=== PATIENT | female | born 1965 | race Caucasian/White ===

== ENCOUNTER 2023-04-28 18:31 | Inpatient (IN) | payer MEDICARE, MEDICAID, SELFPAY ==
[2023-04-28 18:32] VITALS: BP 179/123; PULSE 78; TEMP 36.8; O2SAT 96; BMI 23.3
[2023-04-28 19:23] LABS: Basophils % 0.1 %; Eosinophils % 0.1 %; Hematocrit 42.3 % (36-47); Lymphocytes # 1.8 10^3/uL (0.8-4.8); Lymphocytes % 19.7 %; Mean Corpuscular Hemoglobin 32.5 pg (27-33); Mean Corpuscular Volume 95.5 fl (85-98); Mean Platelet Volume 9.4 fL (7.4-10.4); Monocytes # 0.6 10^3/uL (0.2-0.9); Monocytes % 6.3 %; Neutrophils # 6.64 10^3/uL (1.8-7.7); Neutrophils % 73.6 %; Nucleated Red Blood Cells % 0 %; Platelet Count 262 10^3/cmm (157-399); Red Blood Count 4.43 10^6/uL (3.85-5.65); Red Cell Distribution Width 14.5 % (12.1-15.1); White Blood Count 9.03 10^3/uL (3.29-11.43)
[2023-04-28 19:42] LABS: Alanine Aminotransferase 10 U/L (0-33); Albumin Level 4.4 g/dL (3.5-5.2); Alcohol Level 168 mg/dL (0-10); Alkaline Phosphatase 91 U/L (35-105); Aspartate Amino Transferase 15 U/L (0-32); Blood Urea Nitrogen 12 mg/dL (6-20); Calcium 9.1 mg/dL (8.5-10.5); Carbon Dioxide 29 mmol/L (22-29); Chloride 103 mmol/L (98-107); Globulin 3.2 g/dL (1.3-4.6); Glomerular Filtration Rate 102.3 mL/min (90-130); Glucose 110 mg/dL (65-115); Osmolality Calculated 292 mOsm/kg (285-295); Sodium 141 mmol/L (136-145); Total Bilirubin 0.2 mg/dL (0.15-1.2); Total Protein 7.6 g/dL (6.6-8.7)
[2023-04-28 19:43] LABS: Acetaminophen < 5.0 ug/mL (10-30); Salicylate < 0.3 mg/dL (3-10)
--- NOTE | 2023-04-28 19:46 | W.ED.PSYCHS ---
HPI - Psych General: Chief Complaint: Psychiatric Symptoms Stated Complaint: si Time Seen by Provider: 04/28/23 18:36 History of Present Illness: Patient presents to the ER for suicidal ideation. Patient was found near the train next and she stated that she was trying to kill herself and if the police would have got there in time she would jump in front of a train. Patient states her is in [place] in detention and has been there 7 years she has family members in [place] and family members and some other faraway state and has no one here for support. Patient states has been on antidepressants for a long time but is been out of them for a long time and Celexa seem to work the best. Patient does states she has tried committing suicide by taking 72 Tylenol PM in the past. Physical Exam Const: COMMON NORMALS: no acute distress, average body habitus, patient oriented x3, no limitations, healthy appearing, alert and well nourished HENMT: COMMON NORMALS: normocephalic, atraumatic, external ears normal, Normal external nose present and moist oral mucous membranes; hearing grossly not normal bilaterally (Patient hard of hearing) HEAD & SCALP: normocephalic and atraumatic NOSE: Normal external nose present EXTERNAL EAR: Yes external ears normal Eye: COMMON NORMALS: Equal, round and reactive pupils present, EOMs intact bilaterally, conjunctivae normal and no scleral icterus CONJUNCTIVA: Yes conjunctivae normal PUPIL: Yes Equal, round and reactive pupils present Neck/C-Spine: COMMON NORMALS: full ROM, no lymphadenopathy, supple, no meningeal signs, no JVD and Thyroid normal THYROID: Thyroid normal Lymph: LYMPHATIC: no lymphadenopathy noted and no lymphedema noted Chest: COMMONS NORMALS: normal inspection of the chest and normal palpation of entire chest wall Resp: COMMON NORMALS: normal respiratory effort, No retractions, No use of accessory muscles and clear to auscultation bilaterally AUSCULTATION: clear to auscultation bilaterally Cardio: COMMON NORMALS: no JVD, regular rate, regular rhythm, S1 normal heart sound present, S2 normal heart sound present and No gallops present (Cardio) RATE: regular rate RHYTHM: regular rhythm HEART SOUNDS: S1 normal heart sound present and S2 normal heart sound present GI: COMMON NORMALS: Normal to inspection, nondistended, normoactive bowel sounds present, Soft to palpation, non-tender and No hepatosplenomegaly present PALPATION: Yes Soft to palpation and Yes No hepatosplenomegaly present : COMMON NORMALS: Yes no CVA tenderness BLADDER/KIDNEY EXAM: Yes no CVA tenderness Back/Pelvis: COMMON NORMALS: no CVA tenderness Neuro: COMMON NORMALS: patient oriented x3 SENSORIUM/ORIENTATION: Yes alert MENINGEAL SIGNS: Yes no meningeal signs Course Vital Signs: Vital signs: Vital Signs Temperature 98.2 F 04/28/23 18:32 Pulse Rate 78 04/28/23 18:32 Blood Pressure 179/123 04/28/23 18:32 Pulse Oximetry 96 04/28/23 18:32 Oxygen Delivery Me thod Room Air 04/28/23 18:32 MDM - Psych Medical Decision Making Patient presents to the ER for suicidal ideation. States she will jump in front of train to end her life. Patient does not be on her antidepressants for multiple years. Patient was worked up in normal psychiatric fashion with labs. Patient is alcohol level did come back approximately 168. Dr. Mcintyre was consulted who agreed for admission for further evaluation and treatment. Patient is voluntary Differential Diagnosis Likely suicidal ideation and depression; Unlikely acute psychosis, chronic schizophrenia, bipolar disorder, drug-induced psychotic disorder or acute anxiety Medical Records I reviewed the patient's medical records. Lab Data I reviewed the patient's lab results. 04/28/23 19:07 04/28/23 19:07 Laboratory Results WBC 9.03 10^3/uL (3.29-11.43) 04/28/23 19:07 RBC 4.43 10^6/uL (3.85-5.65) 04/28/23 19:07 Hgb 14.40 g/dL (11.27-16.99) 04/28/23 19:07 Hct 42.3 % (36-47) 04/28/23 19:07 MCV 95.5 fl (85-98) 04/28/23 19:07 MCH 32.5 pg (27-33) 04/28/23 19:07 MCHC 34.0 g/dL (30-55) 04/28/23 19:07 RDW 14.5 % (12.1-15.1) 04/28/23 19:07 Plt Count 262 10^3/cmm (157-399) 04/28/23 19:07 MPV 9.4 fL (7.4-10.4) 04/28/23 19:07 Neut % (Auto) 73.6 % 04/28/23 19:07 Lymph % (Auto) 19.7 % 04/28/23 19:07 Dickenson % (Auto) 6.3 % 04/28/23 19:07 Eos % (Auto) 0.1 % 04/28/23 19:07 Baso % (Auto) 0.1 % 04/28/23 19:07 Neut # (Auto) 6.64 10^3/uL (1.8-7.7) 04/28/23 19:07 Lymph # (Auto) 1.8 10^3/uL (0.8-4.8) 04/28/23 19:07 Dickenson # (Auto) 0.6 10^3/uL (0.2-0.9) 04/28/23 19:07 Eos # (Auto) 0.0 10^3/uL (0.0-0.8) 04/28/23 19:07 Baso # (Auto) 0.0 10^3/uL (0.0-0.1) 04/28/23 19:07 Nucleated RBC % (auto) 0 % 04/28/23 19:07 Nucleated RBCs # 0.0 /100WBC 04/28/23 19:07 Sodium 141 mmol/L (136-145) 04/28/23 19:07 Potassium 4.0 mmol/L (3.5-5.1) 04/28/23 19:07 Chloride 103 mmol/L (98-107) 04/28/23 19:07 Carbon Dioxide 29 mmol/L (22-29) 04/28/23 19:07 Anion Gap 13.0 (5-19) 04/28/23 19:07 BUN 12 mg/dL (6-20) 04/28/23 19:07 Creatinine 0.6 mg/dL (0.5-0.9) 04/28/23 19:07 GFR Calculation 102.3 mL/min (90-130) 04/28/23 19:07 Glucose 110 mg/dL (65-115) 04/28/23 19:07 Calculated Osmolality 292 mOsm/kg (285-295) 04/28/23 19:07 Calcium 9.1 mg/dL (8.5-10.5) 04/28/23 19:07 Total Bilirubin 0.2 mg/dL (0.15-1.2) 04/28/23 19:07 AST 15 U/L (0-32) 04/28/23 19:07 ALT 10 U/L (0-33) 04/28/23 19:07 Alkaline Phosphatase 91 U/L (35-105) 04/28/23 19:07 Total Protein 7.6 g/dL (6.6-8.7) 04/28/23 19:07 Albumin 4.4 g/dL (3.5-5.2) 04/28/23 19:07 Globulin 3.2 g/dL (1.3-4.6) 04/28/23 19:07 Salicylates < 0.3 mg/dL (3-10) L 04/28/23 19:07 Acetaminophen < 5.0 ug/mL (10-30) L 04/28/23 19:07 Ethyl Alcohol 168 mg/dL (0-10) H 04/28/23 19:07 No radiology studies performed this visit Discharge Plan Discharge Patient Disposition: Admitted As Inpatient Clinical Impression: Suicidal ideation Condition: Stable Coding Level of Care Code ED Client Service Executive for Ann Goodwin
[2023-04-28] MEDS: nicotine 21 mg Patch 1 PATCH TRANSDERMA (19:56)
--- NOTE | 2023-04-28 20:00 | PC.NURSE ---
This nurse spoke with Dr. Jones who approved pt to make a 5 min phone call. Pt asking for people to bring cigarettes, pt has been educated she cannot smoke. Dr. Jones made aware of the conversation pt had on phone.
[2023-04-28 21:58] VITALS: BP 158/104; PULSE 78; RESP 16; O2SAT 97
[2023-04-28 22:18] VITALS: BP 197/120; PULSE 76; RESP 18; TEMP 36.4; O2SAT 94
[2023-04-28] MEDS: LORazepam 2 mg Tablet PO (22:46)
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
[2023-04-29 00:55] VITALS: BP 164/112
[2023-04-29 06:35] LABS: Add Urine Microscopic? NO; Charge for UA Resulting for Rev
[2023-04-29 06:38] LABS: Bilirubin Urine Neg (Negative); Blood Urine Neg (Negative); Glucose Urine UA Norm (Normal); Ketones Urine Negative (Negative); Leukocyte Esterase Urine Negative (Negative); Nitrate Urine Negative (Negative); Protein Urine Neg (Negative); Specific Gravity, Urine 1.015 (1.005-1.030); Urine Appearance Clear (CLEAR); Urine Color Yellow (Yellow); Urobilinogen Urine Norm (Negative); pH Urine 6.5 (5-7)
--- NOTE | 2023-04-29 06:40 | PC.NURSE ---
PT BP CONTINUES TO BE ELEVATED AT 165/111. NOTIFIED VIA PHONE. NEW ORDERS RECEIVED FOR CLONIDINE 0.1 MG PO Q HOURS PRN FOR ELEVATED BP READ BACK AND VERIFIED. ORDERS PLACED IN CHART. WIND FARM DESIGNER TO PULL MEDICATION AND GIVE SOON PHARMACY APPROVES.
[2023-04-29 06:42] VITALS: BP 165/111; PULSE 71; RESP 16; TEMP 37.3; O2SAT 95
[2023-04-29 06:47] LABS: Amphetamines Screen Urine Negative (Negative); Barbiturates Screen Urine Negative (Negative); Benzodiazepines Screen Urine Positive (Negative); Cocaine Screen Urine Negative (Negative); Opiate Screen Urine Negative (Negative); PCP Screen Urine Negative (Negative); THC Screen Urine Positive (Negative)
[2023-04-29 06:50] VITALS: BP 165/111
[2023-04-29] MEDS: cloNIDine 0.1 mg Tablet PO (06:50)
[2023-04-29] MEDS: KETOROLAC 10 MG TAB 1 EACH PO (11:24)
[2023-04-29] MEDS: folic acid 1 mg Tablet PO (11:25)
[2023-04-29] MEDS: thiamine 100 mg Tablet PO (11:25)
[2023-04-29] MEDS: multivitamin therapeutic Tablet 1 TAB PO (11:25)
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
[2023-04-29] MEDS: nicotine 21 mg Patch 1 PATCH TRANSDERMA (13:55)
[2023-04-29 14:18] VITALS: BP 153/101; PULSE 66; RESP 14; TEMP 36.9; O2SAT 93
[2023-04-29 20:30] VITALS: BP 172/106; PULSE 57; RESP 16; TEMP 37; O2SAT 93
[2023-04-30] MEDS: ibuprofen 600 mg Tablet PO ×3 (05:13→20:47)
[2023-04-30 06:00] VITALS: BP 189/113; PULSE 63; RESP 16; TEMP 36.5; O2SAT 96
[2023-04-30 06:06] VITALS: BP 189/113
[2023-04-30] MEDS: cloNIDine 0.1 mg Tablet PO (06:06)
[2023-04-30] MEDS: multivitamin therapeutic Tablet 1 TAB PO (08:17)
[2023-04-30] MEDS: thiamine 100 mg Tablet PO (08:17)
[2023-04-30] MEDS: folic acid 1 mg Tablet PO (08:17)
[2023-04-30] MEDS: nicotine 21 mg Patch 1 PATCH TRANSDERMA (08:17)
--- NOTE | 2023-04-30 09:49 | W.PM.NPUPNS ---
Subjective NPU Subjective: Patient presented today reporting that she is doing better. She was insisting that her behaviors yesterday had much more to do with her intoxication than with her mental state. She reports that she has really felt alone and just got out of sorts while intoxicated. We discussed that we cannot control her getting intoxicated meaning the risk still remains. He reports that she connected with her family [place] and he thinks she is going to try to move closer to one of them. She was very much lobbying for discharge today but we talked about the likelihood of discharge in the next 48 hours. She reports that Celexa has helped and she denied any side effects of the medication thus far. We discussed the plan to initiate a medication and then send her home with a plan to increase in a couple of weeks. Mental Status Exam MSE Comments: This is a well-nourished, well-developed, white female, in hospital scrubs, looking older than her stated age, with limited grooming and eye contact. Absent dentition. No abnormal movements, except for mild psychomotor retardation. Cooperative with exam in mild distress. Speech was normal rate and volume with some dysarthria with the forward intention. Mood described as better now I just want to go home; affect slightly subdued. Thought process, organized. Thought content: patient denied current suicidal ideation, but was definitely suicidal before admission, patient denied homicidal ideation, there were no delusions reported or noted, patient denied any auditory or visual hallucinations. Attention, concentration, and memory appeared intact, but none were formally tested. Alert and oriented times three. Insight and judgment are limited . Impulse control is limited. Vitals/I&O/Wt Last Vital Signs Temp 97.7 F 04/30/23 06:00 Pulse 63 04/30/23 06:00 Resp 16 04/30/23 06:00 BP 189/113 04/30/23 06:06 Pulse Ox 96 04/30/23 06:00 O2 Del Method Room Air 04/29/23 14:18 Weight last 48 hrs Weight 61.689 kg Data NPU 04/28/23 19:07 04/28/23 19:07 A&P Assessment and plan (1) Suicidal ideation: (2) Major depressive disorder, recurrent: (3) Nicotine use disorder: Plan This is a 58-year-old, white female, with genetic loading for mental health and addiction issues, with one previous psychiatric hospitalization and limited history of outpatient services, who came to the hospital secondary to suicidal thoughts with intent, with a willingness to restart medication. 1. Gain some collateral information. Started Celexa 20 mg p.o. daily. Plan to increase to 40 mg in a couple of weeks outside of the hospital. 2. Encourage individual, group, and milieu therapy. 3. Continue q-15-minute checks for safety. 4. Recommend sober living treatment at the highest level of care to which the patient is willing to commit. Involuntary Hold Information 96 Hour Hold: 96 Hour Involuntary Admission: No Attestations NPU Medical Necessity Statement*: Inpatient hospitalization is medically necessary and the clinically appropriate intervention, at this time. We will monitor medications and make changes as indicated. Likely length of stay is 1-4 days. Coding Level of Care Code Acute Code for [facility] Fwd Diagnoses Suicidal ideation R45.851 Major depressive disorder, recurrent F33.9 Nicotine use disorder F17.200
[2023-04-30] MEDS: citalopram 20 mg Tablet PO (10:51)
[2023-04-30 13:41] VITALS: BP 153/121; PULSE 105; RESP 17; TEMP 36.9; O2SAT 94
[2023-04-30] MEDS: KETOROLAC 10 MG TAB 1 EACH PO ×2 (16:45→23:56)
[2023-04-30 20:23] VITALS: BP 180/104; PULSE 75; RESP 20; TEMP 36.8; O2SAT 95
[2023-04-30] MEDS: trazodone 50 mg Tablet PO (23:57)
[2023-05-01 06:00] VITALS: BP 161/126; PULSE 83; RESP 18; TEMP 36.6; O2SAT 94
[2023-05-01] MEDS: ibuprofen 600 mg Tablet PO (06:17)
[2023-05-01 06:48] VITALS: BP 161/126
[2023-05-01] MEDS: cloNIDine 0.1 mg Tablet PO (06:48)
[2023-05-01] MEDS: LORazepam 2 mg Tablet PO (08:50)
[2023-05-01] MEDS: thiamine 100 mg Tablet PO (08:50)
[2023-05-01] MEDS: multivitamin therapeutic Tablet 1 TAB PO (08:50)
[2023-05-01] MEDS: citalopram 20 mg Tablet PO (08:50)
[2023-05-01] MEDS: nicotine 21 mg Patch 1 PATCH TRANSDERMA (08:50)
[2023-05-01] MEDS: folic acid 1 mg Tablet PO (08:50)
[2023-05-01] MEDS: KETOROLAC 10 MG TAB 1 EACH PO (09:02)
--- NOTE | 2023-05-01 10:46 | DCPLANNER ---
IMM was completed on 05/01/23 @ 1846. Pt was given a copy of her rights and she stated she understood her rights.
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
[2023-05-01 11:19] VITALS: BP 161/126; PULSE 83; RESP 18; TEMP 36.6; O2SAT 94
--- NOTE | 2023-05-01 13:33 | PC.NURSE ---
written discharge instruction administered to patient. pt stated understanding and compliance,.
[2023-05-01] MEDS: lisinopril 10 mg Tablet PO (14:33)
== END 2023-05-01 15:26 | disposition home or self-care (01) | DRG 897 ==
LOC: ER 21:45 → NP 21:49
PROVIDERS: Admitting Provider Psychiatry & Neurology Psychiatry; Emergency Provider Emergency Medicine; Visit Provider Psychiatry & Neurology Psychiatry
DX: F10.129 Alcohol abuse with intoxication, unspecified (principal); F33.9 Major depressive disorder, recurrent, unspecified; R45.851 Suicidal ideations; Y90.6 Blood alcohol level of 120-199 mg/100 ml; F41.9 Anxiety disorder, unspecified; F17.210 Nicotine dependence, cigarettes, uncomplicated; F12.90 Cannabis use, unspecified, uncomplicated; H91.90 Unspecified hearing loss, unspecified ear
CPT/HCPCS: 36415; 80053; 80306; 80307; 81003; 85025; 96372; 97165; 99238; 99285; J3411

== ENCOUNTER → 2024-12-17 14:32 | Outpatient (BNVA) | payer MEDICARE, MEDICAID, SELFPAY | PROVIDERS: PCP Nurse Practitioner; Referring Provider Nurse Practitioner; Visit Provider Nurse Practitioner | DX: M47.892 Other spondylosis, cervical region (principal); M54.30 Sciatica, unspecified side | CPT/HCPCS: 72040 ==

== ENCOUNTER → 2025-01-13 13:54 | Outpatient (BNVA) | payer MEDICARE, MEDICAID, SELFPAY | PROVIDERS: PCP Nurse Practitioner; Visit Provider Orthopaedic Surgery | DX: M54.2 Cervicalgia (principal); G89.29 Other chronic pain | CPT/HCPCS: 72050; 99203 ==

== ENCOUNTER 2025-02-08 05:00 | Outpatient (RCR) | payer MEDICARE, MEDICAID, SELFPAY | END 2025-03-10 23:59 | disposition home or self-care (01) | LOC: MPT 05:00 | PROVIDERS: Visit Provider Orthopaedic Surgery | DX: M54.2 Cervicalgia (principal); G89.29 Other chronic pain | CPT/HCPCS: 97110; 97162 ==

== ENCOUNTER → 2025-06-13 10:16 | Outpatient (BNVA) | payer MEDICARE, MEDICAID, SELFPAY | PROVIDERS: PCP Nurse Practitioner; Visit Provider Nurse Practitioner | DX: I10 Essential (primary) hypertension (principal); M79.604 Pain in right leg; M79.605 Pain in left leg; M54.50 Low back pain, unspecified | CPT/HCPCS: 80053; 80061; 84443; 85025 ==

== ENCOUNTER → 2025-06-24 14:14 | Outpatient (BNVA) | payer MEDICARE, MEDICAID, SELFPAY | PROVIDERS: PCP Nurse Practitioner; Visit Provider Nurse Practitioner | DX: M47.816 Spondylosis without myelopathy or radiculopathy, lumbar region (principal); I77.811 Abdominal aortic ectasia; M51.369 Other intervertebral disc degeneration, lumbar region without mention of lumbar back pain or lower extremity pain | CPT/HCPCS: 72100 ==

== ENCOUNTER → 2025-07-01 13:53 | Outpatient (BNVA) | payer MEDICARE, MEDICAID, SELFPAY | PROVIDERS: PCP Nurse Practitioner; Visit Provider Nurse Practitioner | DX: R09.81 Nasal congestion (principal) | CPT/HCPCS: 87400; 87426 ==

== ENCOUNTER → 2025-07-22 14:57 | Outpatient (BNVA) | payer MEDICARE, MEDICAID, SELFPAY | PROVIDERS: PCP Nurse Practitioner; Visit Provider Nurse Practitioner | DX: R05.3 Chronic cough (principal); I77.810 Thoracic aortic ectasia; I77.1 Stricture of artery; R91.8 Other nonspecific abnormal finding of lung field; M47.814 Spondylosis without myelopathy or radiculopathy, thoracic region | CPT/HCPCS: 71046 ==

== ENCOUNTER 2025-07-29 10:20 | Outpatient (CLI) | payer MEDICARE, MEDICAID, SELFPAY ==
--- NOTE | 2025-07-29 10:45 | USCV_ITS ---
Aundrea Steel Age: 60 Gender: F : 1965 Exam Date: 07/29/2025 10:31 Ordering Phys: Alyce Gray DATA ADMINISTRATOR DATA ADMINISTRATOR Technologist: MAYI Exam Location: [facility] Indication: possible aneursym seen on xray HISTORY: Diameter (cm) AP x Transverse x Length Velocity (cm/s) Waveform Prox Aorta: 2.30 x 2.40 x 50.10 Triphasic Mid Aorta: 1.60 x 2.30 x 38.70 Triphasic Distal Aorta: 2.10 x 2.10 x 31.00 Triphasic Right Iliac Prox: 1.39 x 1.33 x 84.30 Triphasic Left Iliac Prox: 1.16 x 1.16 x 47.90 Triphasic Stent Prox Landing x x Aneurysmal Sac Max x x Lt Lat Sac Dim Rt Lat Sac Dim Stent Dist Landing x x Right Iliac Stent x x Left Iliac Stent x x Right Renal Art Left Renal Art FINDINGS: CONCLUSIONS No evidence of abdominal aortic or bilateral iliac aneurysm. Moderate aortic atheromatous disease Romel Buck MD (Electronically Signed) Final Date: 01 August 2025 10:13 S
== END 2025-07-29 10:21 | disposition home or self-care (01) ==
LOC: RAD 10:21
PROVIDERS: PCP Nurse Practitioner; Visit Provider Nurse Practitioner
DX: I77.819 Aortic ectasia, unspecified site (principal)
CPT/HCPCS: 76706